=== PATIENT | female | born 1945 | race Caucasian/White ===

== ENCOUNTER 2019-05-23 09:20 | Observation (INO) ==
[2019-05-23] MEDS ORDERED: Naloxone 0.4 MG/ML INJ IVP PRN ×2 (13:47→19:26)
[2019-05-23] MEDS ORDERED: Ondansetron 4 MG/2 ML VIAL IVP PRN ×2 (13:47→19:26)
[2019-05-23] MEDS ORDERED: Ketorolac 15 MG/ML VIAL IVP PRN ×2 (13:47→19:26)
[2019-05-23] MEDS ORDERED: *HR* HYDROmorphone (PF) 1 MG/ML SYRINGE IVP PRN (13:50)
[2019-05-23] MEDS ORDERED: Lidocaine -MPF 2% 2 ML VIAL ONE (16:28)
[2019-05-23] MEDS ORDERED: Ondansetron 4 MG/2 ML VIAL ONE (16:28)
[2019-05-23] MEDS ORDERED: *HR* Propofol 200 MG/20 ML VIAL IVP ONE (16:28)
[2019-05-23] MEDS ORDERED: Dexamethasone 4 MG/ML VIAL ONE (16:28)
[2019-05-23] MEDS ORDERED: *HR* FentaNYL (PF) 100 MCG/2 ML VIAL ONE (16:28)
[2019-05-23] MEDS ORDERED: Morphine Sulfate 2 MG/ML SYRINGE IVP PRN (16:53)
[2019-05-23] MEDS ORDERED: Isovue-300 50ML VIAL ONE (16:59)
[2019-05-23] MEDS ORDERED: *HR* PHENYLEPHRINE 1,000 MCG/10 ML SYRINGE IVP ONE (17:23)
[2019-05-23] MEDS ORDERED: *HR* Heparin 5,000 UNIT/ML VIAL SQ SCH (18:00)
[2019-05-23] MEDS ORDERED: *HR* OxyCODONE/APAP 5/325 TABLET PO PRN (19:26)
[2019-05-23] MEDS ORDERED: Ondansetron 4 MG/2 ML VIAL IVP ONE (20:23)
[2019-05-24] MEDS ORDERED: *HR* Heparin 5,000 UNIT/ML VIAL SQ SCH (06:00)
[2019-05-24 07:40] LABS: Eosinophils % 0.2 %; Hematocrit 34.2 % (35.3-44.9); Hemoglobin 11.9 g/dL (11.5-15.4); Immature Granulocytes % 0.4 % (0-4); Lymphocytes # 0.8 K/mcL (0.6-4.6); Lymphocytes % 15.2 %; Mean Corpuscular HGB Conc 34.8 g/dL (31.6-35.5); Mean Corpuscular Hemoglobin 31.8 pg (28.0-33.3); Mean Corpuscular Volume 91.4 fL (83.0-100.0); Monocytes # 0.3 K/mcL (0.0-1.3); Monocytes % 5.2 %; Neutrophils # 4.3 K/mcL (1.6-8.9); Platelet Count 118 K/mcL (140-400); Red Blood Count 3.74 M/mcL (3.82-4.97); Red Cell Distribution Width 12.9 % (11.5-14.5); White Blood Count 5.4 K/mcL (4.3-11.1)
[2019-05-24 08:28] LABS: BUN/Creatinine Ratio 26 (6-26); Blood Urea Nitrogen 27 mg/dL (8-23); Carbon Dioxide 21 mEq/L (23-29); Chloride 106 mEq/L (98-107); Glucose 140 mg/dL (70-105); Osmolality,Calculated 295 (280-300); Potassium 3.8 mEq/L (3.5-5.1); Sodium 139 mEq/L (136-145); eGFR For African Americans > 60 (> 60); eGFR For Non-African Americans 52 (> 60)
[2019-05-24] MEDS ORDERED: Multivit/Ca/Min/Fe/FA 1 TAB TABLET PO SCH ×2 (09:00)
[2019-05-24 11:28] VITALS: BP 123/67
[2019-05-29 10:51] LABS: Calculi Mass 105 mg
== END 2019-05-24 12:00 | disposition home or self-care (01) ==
LOC: 3ANU → SUATTDRO 10:58
PROVIDERS: ADMIT Internal Medicine; ATTEND Internal Medicine